=== PATIENT | female | born 1970 | race Caucasian/White ===

== ENCOUNTER 2023-10-21 23:35 | Emergency (ER) | payer BC ==
[2023-10-21] MEDS: fentaNYL 100 MCG/2 ML SDV IM ONE (23:47)
[2023-10-21] MEDS: Ketorolac 30 MG/ML SDV IM ONE (23:51)
== END 2023-10-22 01:30 | disposition home or self-care (01) ==
LOC: JP.ED 23:35
DX: S92.322A Displaced fracture of second metatarsal bone, left foot, initial encounter for closed fracture (principal); S92.332A Displaced fracture of third metatarsal bone, left foot, initial encounter for closed fracture; S92.342A Displaced fracture of fourth metatarsal bone, left foot, initial encounter for closed fracture; Z88.0 Allergy status to penicillin; Z88.2 Allergy status to sulfonamides; Z91.048 Other nonmedicinal substance allergy status; X50.0XXA Overexertion from strenuous movement or load, initial encounter
CPT/HCPCS: 73610; 73630; 96372; 99283; J1885